=== PATIENT | female | born 2000 | race Caucasian/White ===

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

== ENCOUNTER → 2022-11-20 12:10 | Outpatient (CLI) | payer BC, SELFPAY ==
[2022-11-21 08:10] LABS: Hep B Surface Ab, Qual Non Reactive (.); Rubella Antibodies, IgG 2.19 index (Immune >0.99)
[2022-11-23 20:01] LABS: QuantiFERON-TB Gold Plus Negative (Negative)
== END ==
PROVIDERS: PCP Nurse Practitioner; Visit Provider Nurse Practitioner
DX: Z01.84 Encounter for antibody response examination (principal); Z11.1 Encounter for screening for respiratory tuberculosis
CPT/HCPCS: 36415; 86480; 86706; 86735; 86762; 86765

== ENCOUNTER 2023-08-12 10:15 | Outpatient (CLI) | payer BC, SELFPAY ==
--- NOTE | 2023-08-12 10:20 | XR_ITS ---
FINAL REPORT CLINICAL HISTORY: cough, left basilar rales FINDINGS: No acute pulmonary density is evident. There is no evidence of effusion or other pleural disease. The mediastinum has a normal appearance. The cardiac silhouette is unremarkable. IMPRESSION: Unremarkable chest exam. Reviewed, Interpreted and Dictated by Norberto Nixon MD Transcribed by Brandy Benitez Authenticated and [facility]
== END 2023-08-12 23:59 | disposition home or self-care (01) ==
LOC: RAD 10:16
PROVIDERS: PCP Family Medicine; Visit Provider Nurse Practitioner
DX: R09.89 Other specified symptoms and signs involving the circulatory and respiratory systems (principal); R05.9 Cough, unspecified
CPT/HCPCS: 71046

== ENCOUNTER 2023-11-10 09:08 | Outpatient (CLI) | payer BC, SELFPAY ==
[2023-11-11 06:15] LABS: Hep B Surface Ab, Qual Reactive (.); Mumps Abs, IgG 84.3 AU/mL (Immune >10.9); Rubella Antibodies, IgG 1.69 index (Immune >0.99)
[2023-11-11 14:24] LABS: Varicella-Zoster Ab, IgM <0.91 index (0.00-0.90)
[2023-11-12 19:12] LABS: QuantiFERON-TB Gold Plus Negative (Negative)
[2023-11-15 10:10] LABS: Varicella Zoster IgG <135 index (Immune >165)
== END 2023-11-10 23:59 | disposition home or self-care (01) ==
LOC: LAB 09:09
PROVIDERS: PCP Nurse Practitioner; Visit Provider Nurse Practitioner
DX: Z01.84 Encounter for antibody response examination (principal); Z11.1 Encounter for screening for respiratory tuberculosis
CPT/HCPCS: 36415; 86480; 86706; 86735; 86762; 86765; 86787

== ENCOUNTER 2024-10-01 14:36 | Outpatient (CLI) | payer BC, SELFPAY ==
[2024-10-01 18:43] LABS: Basophils % 0.5 % (0.1-2.0); Eosinophils # 0.1 Kmm3 (0.0-0.4); Eosinophils % 1.8 % (0.1-12.0); Hematocrit 42.1 % (37.0-47.0); Hemoglobin 14.5 g/dL (12.2-16.2); Immature Granulocytes # 0.02 10^3uL; Immature Granulocytes % 0.3 %; Lymphocytes # 1.8 K/mm3 (0.7-4.5); Lymphocytes % 23.6 % (10-50); Mean Corpuscular HGB Conc 34.4 g/dL (31.8-35.4); Mean Corpuscular Hemoglobin 30.1 pg (27.0-31.2); Mean Corpuscular Volume 87.5 fl (81-99); Mean Platelet Volume 12.1 fl (7.4-10.4); Monocytes # 0.4 K/mm3 (0.1-1.0); Monocytes % 4.5 % (1.7-9.3); Neutrophils # 5.4 K/mm3 (1.8-7.8); Neutrophils % 69.3 % (37.0-80.0); Nucleated Red Blood Cells # 0 10^3/uL; Nucleated Red Blood Cells % 0 %; Platelet Count 304 K/mm3 (142-424); Red Blood Count 4.81 M/mm3 (4.20-5.40); Red Cell Distribution Width 11.9 % (11.5-17.5); White Blood Count 7.8 K/mm3 (4.8-10.8)
[2024-10-01 19:21] LABS: Hemoglobin A1C 5.7 % (4.0-6.0)
[2024-10-01 19:23] LABS: Alanine Aminotransferase 14 U/L (12-78); Albumin Level 4.3 g/dl (3.5-5.0); Albumin/Globulin Ratio 1.4 (1.1-1.8); Alkaline Phosphatase 82 U/L (38-126); Aspartate Amino Transferase 25 U/L (14-36); Bilirubin,Total 0.8 mg/dl (0.2-1.3); Blood Urea Nitrogen 8 mg/dl (7-17); Carbon Dioxide 26 mmol/L (22.0-30.0); Chloride 105 mmol/L (98-107); Estimated Glomerular Filt Rate 106 ml/min (>60); GFR (African American) 128 ML/MIN (>60); Glucose 98 mg/dl (74-100); Sodium 136 mmol/L (136-145); Total Protein,Serum 7.3 g/dl (6.3-8.2)
[2024-10-01 19:52] LABS: Thyroid Stimulating Hormone 1.38 uIU/mL (0.465-4.68)
[2024-10-01 20:11] LABS: Vitamin B12 248 pg/mL (239-931)
--- OUTSIDE RECORDS SUMMARY | 2024-10-03 11:43 | XMS_ITS | Clinical Summary ---
Author Organization [facility] [address] Care Team Providers Care Freight Flow Sales Leader Name Role Phone Unavailable Primary Care Provider Unavailabl e Social History Tobacco Use Types Packs/Day Years Used Date Smoking Tobacco: Never Assessed Comments Unknown Sex and Gender Information Value Date Recorded Sex Assigned at Not on file Legal Sex Female 6:13 AM EDT Gender Identity Not on file Sexual Orientation Not on file Plan of Treatment Health Maintenance Due Date Last Done Comments Annual Wellness Exam 2005 HPV (1 - 3-dose series) 2017 Meningococcal B Vaccine (1 o f 2 - Standard) 2018 DTaP/TDaP/Td (1 - Tdap) 2021 Hepatitis B Vaccine (1 of 3 - 19+ 3-dose series) 2021 COVID-19 Vaccine ( - 2023-2 5 season) 2023 Influenza Vaccine (Season Ended) 2024 Pneumococcal Vaccine 0-49 Aged Out No longer eligible based on patient's age to complete this topic
--- OUTSIDE RECORDS SUMMARY | 2024-10-03 11:43 | XMS_ITS | Clinical Summary ---
Author Organization [facility] Address [address] [place] [id number] Care Team Providers Care Cra Name Role Phone Jonah Vazquez M.D. Primary Care Provider [phone] Source Comments [facility] is fully rolled out with thefollowing exceptions:[facility] Allergies No known active allergies Medications daily multiple vitamins tablet Acti ve ibuprofen (MOTRIN) 100 MG tablet Active desonide (DESOWEN) 0.05 % ointmentIndicat ions:Dyshidrosi s Apply a small amount to rough areas on the feet twice daily as needed 60 gm 2 4 Active mupirocin (BACTROBAN) 2 % ointmentIndicat ions:Prophylact ic treatment Begin Mupirocin ointment to open and/or crusted areas twice daily to prevent/treat infection 30 gm 2 4 Active cetirizine (ZyrTEC) 10 MG tabletIndicatio ns:Dyshidrosis Take 1 Tab (10 mg total) by mouth 1 time a day. 30 Tab 5 4 Active Active Problems No known active problems Family History Medical History Relation Name Comments Allergies Father Allergies Mother Asthma Mother Eczema Mother Allergies Sister Eczema Sister Relation Name Status Comments Father Mother Sister Social History Tobacco Use Types Packs/Day Years Used Date Smoking Tobacco: Never Assessed Comments Unknown Sex and Gender Information Value Date Recorded Sex Assigned at Not on file Legal Sex Female 2:55 PM EST Gender Identity Not on file Sexual Orientation Not on file Last Filed Vital Signs Vital Sign Reading Time Taken Comments Blood Pressure - - Pulse - - Temperature - - Respiratory Rate - - Oxygen Saturation - - Inhaled Oxygen Concentration - - Weight 27.4 kg (60 lb 6.5 oz) 04/23/2013 12:43 P M EST Height 135.5 cm (4' 5.35 ) 04/23/2013 12:[address] Body Mass Index 14.92 04/23/2013 12:43 PM EST Plan of Treatment Health Maintenance Due Date Last Done Comments MMR IMMUNIZATION (1 of 1 - S tandard series) 10/10/2003 DTAP/Tdap/Td IMMUNIZATION (1 - Tdap) 2009 VARICELLA IMMUNIZATION (1 of 2 - 13+ 2-dose series) 10/10/2015 HPV IMMUNIZATION (1 - 3-dose series) 2017 MENINGOCOCCAL B VACCINE (1 o f 2 - Standard) 2018 HEPATITIS B IMMUNIZATION (1 of 3 - 19+ 3-dose series) 2021 COVID-19 Vaccine (1 - 2023-2 5 season) 2023 AMB SEASONAL FLU VACCINE (Se ason Ended) 2024 HIB IMMUNIZATION Aged Out No longer e ligible based on patient's age to complete this topic IPV IMMUNIZATION Aged Out No longer e ligible based on patient's age to complete this topic MCV4 IMMUNIZATION Aged Out No longer eligible based on patient's age to complete this topic PNEUMOCOCCAL IMMUNIZATION Aged Out No longer eligible based on patient's age to complete this topic Respiratory Syncytial Virus (RSV) <20mo Aged Out No longer eligible b ased on patient's age to complete this topic Insurance [employer] NON-TRADITIONAL Care Teams Cra Relationship Specialty Start Date End Date Jonah Vazquez M.D. [address] [place] [address] PCP - General External Family Practice 02/23/13
--- OUTSIDE RECORDS SUMMARY | 2024-10-03 11:43 | XMS_ITS | Encounter Summary ---
Author Organization [place] Address [facility] [address] [place] [address] Care Team Providers Care Health Tech Name Role Phone Unavailable Primary Care Provider Unavailabl e Encounter Details Date Type Department Care Team (Late st Contact Info) Description 10/04/2019 Lab Requisition [facility] [place] [address] Art Fuller MD [address] [place], [place] [id number] Encounter for screening for other viral diseases Social History Tobacco Use Types Packs/Day Years Used Date Smoking Tobacco: Never Assessed Comments Unknown Sex and Gender Information Value Date Recorded Sex Assigned at Not on file Legal Sex Female 6:13 AM EDT Gender Identity Not on file Sexual Orientation Not on file documented as of this encounter Plan of Treatment Not on file documented as of this encounter Procedures Procedure Name Priority Date/Time Associated Diagnosis Comments CORONAVIRUS 2019 (COVID-19) - REF LAB Routine 10/04/2019 12:00 PM EDT Encounter for screening for other viral diseases documented in this encounter Results * CORONAVIRUS 2019 (COVID-19) - REF LAB (10/04/2019 12:00 PM EDT) CORONAVIRUS [id number] NON-DETEC KEV NON-DETEC KEV 10/08/2019 9:32 AM EDT [facility] Comment: A Non-Detected result does not preclude the possibility of 2019-nCoV infection since the adequacy of sample collection and/or low viral burden may result in the presence of viral nucleic acids below the analytical sensitivity of this test method. Test results should be used with caution and in conjunction with other clinical and laboratory data in making a diagnosis. Swab NASOPHARYNGEAL STRUCTURE / Unknown 10/04/2019 12:00 PM EDT 10/04/2019 7:10 PM EDT Narrative [facility] - 10/08/2019 9:32 AM EDT The SARS-CoV-2 assay is a real-time RT-PCR test intended for the qualitative detection of nucleic acid from the SARS-CoV-2 in respiratory specimens from individuals. Testing is limited to the guidelines of FDA Emergency Use Authorization FDA for performing SARS-CoV-2 testing. All testing is considered laboratory developed and performance characteristics are determined by [facility]. It has not been cleared nor approved by the FDA. The laboratory is accredited through CLIA and deemed qualified to perform high-complexity testing. Such testing is used for clinical purposes and should not be regarded as investigational or for research. [place] Pat ID: [id number]; [facility] Req Num: [id number]; [facility] Spec ID: [id number] Art Fuller MD LAB SEND OUT ORDERABLES Final Re sult [facility] [address] [phone] documented in this encounter Visit Diagnoses Diagnosis Encounter for screening for other viral diseases documented in this encounter
--- OUTSIDE RECORDS SUMMARY | 2024-10-03 11:43 | XMS_ITS | Clinical Summary ---
Author Organization [facility] Address [address] [place] [address] Care Team Providers Care Medical Assistant Ob Gyn Name Role Phone Unavailable Primary Care Provider Unavailabl e Social History Tobacco Use Types Packs/Day Years Used Date Smoking Tobacco: Never Assessed Comments Unknown Sex and Gender Information Value Date Recorded Sex Assigned at Not on file Legal Sex Female 9:04 AM EDT Gender Identity Not on file Sexual Orientation Not on file Plan of Treatment Health Maintenance Due Date Last Done Comments [facility]-Depression Screening 2002 [facility]-HIV Screening 2002 [facility]-Hepatitis C Screening 2002 [facility]-/Child/Adol SDOH Screenings 2002 HPV Vaccines (1 - 3-dose series) 2017 [facility]- SDOH Screenings 2020 [facility]-Adult SDOH Screenings 2020 [facility]-Pap Smear 10/10/2023 [id number] Vaccine ( - season) 2023 [facility]-DTaP,Tdap,and Td Vaccines (7 - Td or Tdap) 11/21/2033 11/22/2023, 10/20/2013, 11/18/2006, Additional history exists [facility]-Zoster Vaccines (1 of 2) 2052 11/22/2023, 10/25/2013, 10/21/2003 [facility]-Pneumococcal Vaccine: Pediatrics (0 to 5 Years) and At-Risk Patients (6 to 49 Years) Aged Out 04/15/2004, 04/15/2003, 02/18/2003, Additional history exists No longer eligible based on patient's age to complete this topic [facility]-HIB Vaccines Completed 04/20/2004, 08/2003, 02/18/2003, Additional history exists [facility]-IPV Vaccines Aged Out 11/18/2006, 08/2003, 02/18/2003, Additional history exists No longer eligible based on patient's age to complete this topic [facility]-Hepatitis A Vaccines Completed 11/15/2017, 08/2017 [facility]-Hepatitis B Vaccines Completed 023, 11/18/2006, 02/10/2003, Additional history exists [facility]-Varicella Vaccines Completed 4, 10/25/2013, 10/21/2003 [facility]-Influenza Vaccine Completed 01/24/2024 , 01/19/2023, 01/21/2022 [facility]-Rotavirus Vaccines Aged Out No lo nger eligible based on patient's age to complete this topic
== END 2024-10-01 23:59 | disposition home or self-care (01) ==
LOC: LAB.DROPOF 10-03 11:41
PROVIDERS: PCP Nurse Practitioner; Visit Provider Nurse Practitioner
DX: F41.8 Other specified anxiety disorders (principal); Z13.1 Encounter for screening for diabetes mellitus; Z13.21 Encounter for screening for nutritional disorder
CPT/HCPCS: 80053; 82306; 82607; 83036; 84443; 85025